=== PATIENT | female | born 1995 | race Caucasian/White ===

== ENCOUNTER → 2017-02-27 | Outpatient (CLI) | payer BC, OTHER | LOC: KOH-I 02-26 15:30 | DX: R10.9 Unspecified abdominal pain (principal) | CPT/HCPCS: 76700 ==

== ENCOUNTER → 2021-11-10 | Outpatient (CLI) | payer BC, OTHER ==
[~2021-11-10] MED LIST: COLACE 100MG C100 MG PO; IBUPROFEN600 MG PO; LORTAB 5-325 M1 EACH PO; PRENATAL COMPL1 EACH PO
== END ==
LOC: KOH-I 12:03
DX: M54.9 Dorsalgia, unspecified (principal); G89.29 Other chronic pain; M43.8X6 Other specified deforming dorsopathies, lumbar region; M43.8X4 Other specified deforming dorsopathies, thoracic region
CPT/HCPCS: 72080